=== PATIENT | male | born 1995 | race African-American/Black ===

== ENCOUNTER 2023-01-30 22:18 | Emergency (ER) | payer MEDICAID, SELFPAY ==
[2023-01-30 22:20] VITALS: PULSE 84; RESP 16; TEMP 37.3; O2SAT 100; BMI 22.8
--- NOTE | 2023-01-30 23:46 | ED.EXTPRO ---
HPI - Extremity Problem General Chief complaint: Extremity Injury, Upper Stated complaint: pinky finger swollen Time Seen by Provider: 01/30/23 23:25 Source: patient, RN notes reviewed and old records reviewed Mode of arrival: ambulatory Limitations: no limitations History of Present Illness HPI Narrative: 28-year-old male presents for evaluation of pain, swelling redness to his right 5th finger. he states that 1 week ago he touched somebody's hand to had an open wound that was a staph infection. He states that 4 days ago he noticed redness, swelling and pain to his right 5th finger he went to the [facility] 3 days ago and reports he had incision and drainage and was discharged on doxycycline because they said it was MRSA. He is now concerned because he does not believe that his symptoms are improving denies any fevers, chills Related Data Previous Rx's Medication Instructions Recorded cephalexin 500 mg capsule 500 mg PO QID #28 caps 01/30/23 Allergies Allergy/AdvReac Type Severity Reaction Status Date / Time No Known Allergies Allergy Verified 01/30/23 22:23 Review of Systems Constitutional: Constitutional: Denies chills and Denies fever(s) Musculoskeletal: Musculoskeletal: Reports arthralgias and Reports joint swelling Integumentary/Breasts: Skin/Breast: Reports erythema PMFSH Social History Social History Advance Directives: No Advance Directives Information Provided: Yes Physical Exam Vital Signs: Vital Signs: Last Vital Signs Temp 99.1 F 01/30/23 22:20 Pulse 84 01/30/23 22:20 Resp 16 01/30/23 22:20 Pulse Ox 100 01/30/23 22:20 O2 Del Method Room Air 01/30/23 22:20 BMI result Body Mass Index 22.8 Const: General: healthy appearing, comfortable, no acute distress, alert and awake Nutritional Appearance: well nourished Orientation/consciousness: patient oriented x3 HEENT: Head: Yes normocephalic and Yes atraumatic Eyes: Eyelids: Yes eyelids normal Conjunctivae: conjunctivae normal Sclerae: sclerae normal Corneas: corneas normal Pupils: Equal, round and reactive pupils present EOM: EOMs intact bilaterally Neck: Neck: Yes full ROM Resp: Effort & Inspection: normal respiratory effort, able to speak in complete sentences and not labored Skin: Other: patient has a very small, approximately 4 mm area of erythema to the dorsal surface sign right 4th finger just distal to the MCP joint. there is a previous incision and drainage wound. no active drainage, no increased warmth. No streaking erythema. Patient has full range of motion with flexion extension of the joint General skin exam: elasticity normal Neuro: General: patient oriented x3 Cranial nerves: Yes CN's II-XII intact bilaterally, Yes Equal, round and reactive pupils present and Yes Bilaterally intact EOM present Cognition (Neuro): normal cognition Medical Decision Making Medical Decision Making MDM Narrative: patient appears to have a mild cellulitis with no obvious remaining abscess. I will add cephalexin to his antibiotic regimen and he will follow-up with hand surgery if necessary. Differential Diagnosis Differential Diagnoses: The differential diagnosis associated with the presentation includes Cellulitis Abscess MRSA infection Condyloma Discharge Plan Discharge Clinical Impression: Finger pain, right Patient Disposition: Home, Self-Care Instructions: Cellulitis (ED) Additional Instructions: Take the cephalexin addition to the doxycycline your currently taking use warm compresses every 4 hours to the swollen area return for new or worsening symptoms if your still having redness, pain after she completed both antibiotics, you may follow-up with orthopedics at number provided Prescriptions: New cephalexin 500 mg capsule 500 mg PO QID Qty: 28 0RF Referrals: Charline Raymond MD [Physician] - (right 5th finger abscess)
[2023-01-31] VITALS: BP 125/78; PULSE 87; RESP 16; O2SAT 100
== END 2023-01-31 00:20 | disposition home or self-care (01) ==
PROVIDERS: Emergency Provider Emergency Medicine
DX: M79.644 Pain in right finger(s) (principal)
CPT/HCPCS: 99283; 99284

== ENCOUNTER 2023-04-22 13:28 | Emergency (ER) | payer OTHER, SELFPAY ==
[2023-04-22 13:47] VITALS: BP 121/67; PULSE 70; RESP 19; TEMP 36.6; O2SAT 98; BMI 22.8
--- NOTE | 2023-04-22 13:48 | ED_ITS ---
HPI - General Adult General Chief complaint: Urogenital-Male Stated complaint: Burning Sensation Private Area Time Seen by Provider: 04/22/23 16:16 Source: patient, RN notes reviewed and old records reviewed Mode of arrival: ambulatory History of Present Illness [facility] narrative: 28-year-old male with no significant past medical history presenting to the ED complaining of dysuria and penis/ urine feels hot x2 days. Denies injury/trauma, lesions, bumps, ulceration, discharge, testicular/scrotal pain or swelling, abdominal pain, back pain. Admits is sexually active with more than 1 partner with concern for possible STI. Related Data Previous Rx's Medication Instructions Recorded cephalexin 500 mg capsule 500 mg PO QID #28 caps 01/30/23 phenazopyridine 200 mg tablet 200 mg PO TID PRN pain 6 doses #6 04/22/23 (Pyridium) tabs Allergies Allergy/AdvReac Type Severity Reaction Status Date / Time No Known Allergies Allergy Verified 04/22/23 13:45 Review of Systems Review of Systems: Constitutional: No Fever, No Chills, No Night Sweats, No Fatigue, No Malaise Eyes: No Eye Pain, No Swelling Cardiovascular: No Chest Pain, No SOB, no Palpitations Respiratory: No Cough, No Sputum, No Dyspnea Gastrointestinal: No Nausea, No Vomiting, No Diarrhea, No Constipation, No Abdominal pain Genitourinary: No irregular bleeding, +Dysuria, No Urinary Frequency, No Hematuria, No Urinary Incontinence/retention, No Urgency, No Flank Pain, No Urinary Flow Changes Musculoskeletal: No joint pain, No Myalgias Skin: No Skin Lesions, No rash Yes all other systems are reviewed and are negative Constitutional: Constitutional: Reports as per [facility] Past Medical History Attestation statement: The following information was validated with the patient. Source: old records reviewed Onset Date is defined in the Problem List Problems that require an onset date and time if occurred within 24 hrs of arrival to the ED Aortic Dissection and Rupture; Neurologic impairment; Cardiopulmonary Arrest; Endotracheal Intubation; Insertion or Replacement of Mechanical Circulatory Assist Device Social History Social History Alcohol intake: never Advance Directives: No Advance Directives Information Provided: No Physical Exam ED Vital Signs: Vital Signs - 24 hr 04/22/23 13:47 04/22/23 16:45 Temperature 98 F 99.0 F Pulse Rate 70 72 Respiratory Rate 19 16 Blood Pressure 121/67 122/86 Pulse Oximetry 98 100 Oxygen Delivery Method Room Air Room Air BMI result Body Mass Index 22.8 Const General: cooperative, healthy appearing and no acute distress Orientation/consciousness: patient oriented x3 Limitations: no limitations HENMT Head: Yes normal to inspection and Yes atraumatic Ears: hearing grossly normal bilaterally General nose exam: Normal external nose present Face and sinus: Yes normal facial exam Eyes General: appearance normal, both eyes and all related structures EOM: EOMs intact bilaterally Neck Neck: Yes normal visual inspection and Yes no meningeal signs Resp Effort & Inspection: normal respiratory effort and no respiratory distress Cardio Rate: regular rate GI Inspection: Yes normal to inspection Palpation (GI): Soft to palpation, nontender, no guarding and not rigid General: Yes no CVA tenderness Back/Spine/Pelvis Back: no CVA tenderness Skin Rashes: no rashes Wounds: no wounds Neuro General: patient oriented x3, tone normal and no meningeal signs Cranial nerves: Yes CN's II-XII intact bilaterally Gait exam (Neuro): Normal gait present Extrem General: Yes normal to inspection Course Course Course Narrative: RmE: 28 yold male presents to the ED for burning sensation in geintal area. States dysuria. denies any rash or lesions. Admits to sleeping with two women at the same time. UA, CTNG ordered -UA negative. Gonorrhea and chlamydia testing negative > discussed with patient we recommend follow-up with [facility] for further STI testing Results discussed with patient including worrisome signs and symptoms and strict return precautions, and when to return to the emergency department. They verbalized understanding and feel safe for discharge at this time. Medications Administered Discontinued Medications Generic Name Dose Route Start Last Admin Trade Name Freq PRN Reason Stop Dose Admin Phenazopyridine HCl 100 mg 04/22/23 16:44 04/22/23 17:02 Phenazopyridine Hcl 100 Mg Tablet PO 04/22/23 16:45 100 mg ONCE ONE Administration Medical Decision Making Medical Decision Making [facility] Narrative: 28-year-old male with no significant past medical history presenting to the ED complaining of dysuria and penis/ urine feels hot x2 days. On exam vital signs stable, NAD, nontoxic appearing, abdomen soft/nontender, no CVAT. exam deferred. Concern for UTI versus STI. Low suspicion for testicular torsion, orchitis/epididymitis, renal stone or pyelo UA and CT/NG ordered in triage Please refer to course for remaining clinical decision making, interpretation of labs/imaging results, and discussions with consultants and/or family members. Differential Diagnosis Differential Diagnoses: The differential diagnosis associated with the presentation includes As above Lab Data MDM Lab Attestation statement: I reviewed the patient's lab results. Labs: Lab Results 04/22/23 Range/Units 14:01 Urine Color Yellow Urine Appearance Clear Urine pH 7.0 (5.0-9.0) Ur Specific [place] 1.025 (1.005-1.025) Urine Protein Negative (Neg-Trace) mg/dL Urine Glucose (UA) Negative (Negative) mg/dL Urine Ketones Trace (Negative) mg/dL Urine Blood Negative (Negative) Urine Nitrite Negative (Negative) Ur Leukocyte Esterase Negative (Negative) Chlam trachomat DNA PCR NOT DETECTED (Not Detect.) N.gonorrhoeae DNA (PCR) NOT DETECTED (Not Detect.) External Record Review External record reviewed: Inpatient record, Office record, Outpatient record, Prior outpatient labs, Prior outpatient radiology, Primary care record and Outside ED record Tests considered The following testing was considered but not selected: As above Prescription Management I considered prescription management with: Pain Medication and Antibiotic Discharge Plan Discharge Clinical Impression: Dysuria Patient Disposition: Home, Self-Care Instructions: Dysuria (ED) Additional Instructions: You tested negative for gonorrhea and chlamydia Your urine is not infected Pyridium will help with urinary discomfort this will make your urine orange this is normal new line please follow-up with the [facility] for further STI testing if symptoms persist or worsen return to the ED Prescriptions: New phenazopyridine [Pyridium] 200 mg tablet 200 mg PO TID PRN (Reason: pain) Qty: 6 0RF No Action cephalexin 500 mg capsule 500 mg PO QID Qty: 28 0RF Referrals: [facility] [Provider Group] Physician,None [Primary Care Provider] - 5 days Interventions: ED Discharge Assessment Last Done: 04/22/23 17:56 Discharge Date/Time: 04/22/23 17:02
[2023-04-22 14:15] LABS: Appearance Urine Clear; Color Urine Yellow; Glucose Urine UA Negative (Negative); Leukocyte Esterase Urine Negative (Negative); Nitrite Urine Negative (Negative); Specific Gravity - Urine 1.025 (1.005-1.025); Urine Blood Negative (Negative); Urine Ketones Trace mg/dL (Negative); Urine Protein Negative (Neg-Trace)
[2023-04-22 15:36] LABS: CT PCR NOT DETECTED (Not Detect.); NG PCR NOT DETECTED (Not Detect.)
[2023-04-22 16:45] VITALS: BP 122/86; PULSE 72; RESP 16; TEMP 37.2; O2SAT 100
[2023-04-22] MEDS: Phenazopyridine HCL 100 MG TABLET PO (17:02)
== END 2023-04-22 17:02 | disposition home or self-care (01) ==
PROVIDERS: Physician Assistant; Emergency Provider Student in an Organized Health Care Education/Training Program
DX: R30.0 Dysuria (principal); N48.89 Other specified disorders of penis
CPT/HCPCS: 0353U; 81003; 99283